=== PATIENT | female | born 1980 ===

== ENCOUNTER 2017-10-20 12:47 | Emergency (ER) | payer OTHER ==
[2017-10-20 13:10] VITALS: BP 118/77; PULSE 100; RESP 18; TEMP 99; O2SAT 98
[2017-10-20 13:24] LABS: HCG,QUALITATIVE URINE POSITIVE (NEGATIVE)
[2017-10-20 13:26] LABS: SQUAMOUS EPITHIAL 53 /hpf (0-5); URINE BACTERIA MOD (<OCC); URINE BILIRUBIN NEGATIVE (NEGATIVE); URINE BLOOD 2+ (NEGATIVE); URINE CLARITY Hazy (Clear); URINE COLOR Yellow (YELLOW); URINE GLUCOSE (UA) NORMAL (Normal); URINE LEUKOCYTE ESTERASE TRACE Leu/uL (Negative); URINE PROTEIN NEGATIVE (NEGATIVE); URINE UROBILINOGEN NORMAL mg/dL (0.2-1.0)
--- NOTE | 2017-10-20 13:55 | C.PDOC ---
History Of Present Illness 37 year old female presents to the ED for evaluation of generalizes body aches, fever, chills, and dysuria since yesterday. Patient states her LMP was . She thinks she may be , but has not taken a test at home. Patient denies chest pain, shortness of breath, abdominal pain, vaginal bleeding/discharge. Time Seen by Provider: 10/20/17 13:14 Chief Complaint (Nursing): Fever History Per: Patient History/Exam Limitations: no limitations Onset/Duration Of Symptoms: Hrs Current Symptoms Are (Timing): Still Present Associated Symptoms: Fever, Chills Severity: Mild Additional History Per: Patient Past Medical History Reviewed: Historical Data, Nursing Documentation, Vital Signs Vital Signs: Last Vital Signs Temp 99 F 10/20/17 12:56 Pulse 100 H 10/20/17 12:56 Resp 18 10/20/17 12:56 BP 118/77 10/20/17 12:56 Pulse Ox 98 10/20/17 18:05 - Medical History PMH: No Chronic Diseases Surgical History: No Surg Hx Family History: States: No Known Family Hx - Social History Hx Alcohol Use: No Hx Substance Use: No - Immunization History Hx Tetanus Toxoid Vaccination: No Hx Influenza Vaccination: No Hx Pneumococcal Vaccination: No Review Of Systems Constitutional: Positive for: Fever, Chills Cardiovascular: Negative for: Chest Pain, Palpitations Respiratory: Negative for: Cough, Shortness of Breath Gastrointestinal: Negative for: Nausea, Vomiting, Abdominal Pain, Diarrhea Genitourinary: Positive for: Dysuria. Negative for: Hematuria, Vaginal Discharge, Vaginal Bleeding Musculoskeletal: Positive for: Other (generalized body aches ) Skin: Negative for: Rash Physical Exam - Physical Exam Appears: Well, Non-toxic, No Acute Distress Skin: Normal Color, Warm, Dry, No Rash Head: Normacephalic Eye(s): bilateral: Normal Inspection Ear(s): Bilateral: Normal Nose: Normal Oral Mucosa: Moist Throat: Normal, No Erythema, No Exudate, No Drooling Neck: Supple Cardiovascular: Rhythm Regular Respiratory: Normal Breath Sounds, No Rales, No Rhonchi, No Wheezing Gastrointestinal/Abdominal: Normal Exam, Bowel Sounds, Soft, No Tenderness Extremity: Normal ROM Neurological/Psych: Oriented x3 ED Course And Treatment O2 Sat by Pulse Oximetry: 98 (on RA ) Pulse Ox Interpretation: Normal Progress Note: Urinalysis and Urine preg ordered and reviewed. Patient hads (+) test and was (+) for UTI. PO Macrobid given. Rxs for Macrobid and vitamins given. Patient instructed to follow up with street superintendent within 1 week, and understands she should return to ED if symptoms worsen. Reevaluation Time: 13:55 Reassessment Condition: Improved (Patient resting comfortably, in no pain/ distress. On exam, abdomen is soft and nontender. Patient is well appearing and comfortable being discharged home.) Disposition Counseled Patient/Family Regarding: Studies Performed, Diagnosis, Need For Followup, Rx Given - Disposition Referrals: [facility] [Outside] [facility] [Outside] [facility] [Outside] Disposition: HOME/ ROUTINE Disposition Time: 13:55 Condition: STABLE Additional Instructions: FOLLOW UP WITH MANAGER UTILIZATION WITHIN 1 WEEK USE ANTIBIOTIC UNTIL FINISHED RETURN TO EMERGENCY ROOM IF SYMPTOMS WORSEN SEGUIMIENTO CON OB / DIGITAL ASSOCIATE DENTRO DE 1 SEMANA USE ANTIBITICOS HASTA QUE HAYA TERMINADO REGRESE AL SAVI DE EMERGENCIA SI LOS SNTOMAS EMPEORAN Prescriptions: Nitrofurantoin Macrocrystals [Macrobid] 1 cap PO BID #14 cap Multivit/Folic Acid/I [ Plus] 1 tab PO DAILY #30 tab Instructions: Urinary Tract Infection, Adult (DC), Symptoms Forms: [email or web address] (Wolof) Print Language: MALTESE - Clinical Impression Clinical Impression: , UTI (urinary tract infection) - Scribe Statement The provider has reviewed the documentation as recorded by the Scribe (Sara Abrams) Provider Attestation: All medical record entries made by the Scribe were at my direction and personally dictated by me. I have reviewed the chart and agree that the record accurately reflects my personal performance of the history, physical exam, medical decision making, and the department course for this patient. I have also personally directed, reviewed, and agree with the discharge instructions and disposition.
== END 2017-10-20 14:03 | disposition home or self-care (01) ==
LOC: C.ER 12:47
DX: O23.40 Unspecified infection of urinary tract in pregnancy, unspecified trimester (principal); Z3A.00 Weeks of gestation of pregnancy not specified